=== PATIENT | female | born 1970 | race Caucasian/White ===

== ENCOUNTER 2016-09-30 09:50 | Day surgery (SDC) | payer MEDICAID ==
[~2016-09-30] VITALS: Ht 177.8 cm; Wt 90.7 kg
[~2016-09-30 09:50] MED LIST: ABILIFY2 MG PO; ASCORBIC ACID PO; BIOTIN5 MG PO; CARAFATE1 G PO; CYCLOBENZAPRINE10 MG PO; DIOVAN HCT; DIOVAN HCT 80-11 TAB PO; FISH OIL 1,0001 CA1 PO; IRON PO; MULTI-DAY VITAM1 TAB PO; OXYBUTYNIN CHLOR5 MG PO; PAXIL10 MG PO; PROMETRIUM200 MG PO; PROTONIX40 MG PO; STOOL SOFTENER240 MG PO; ULTRAM50 MG PO; XANAX1 MG PO
[2016-09-30 10:46] LABS: BASOPHILS 0.2 % (0.0-2.0); HEMATOCRIT 36.4 % (36.0-48.0); HEMOGLOBIN 11.6 g/dL (12-16); IMMATURE GRANULOCYTES 0.2 % (0-5); LYMPHOCYTES 33.5 % (15-50); MCH 27.8 pg (26.0-34.0); MCHC 31.9 g/dL (31.0-37.0); MCV 87.3 fL (80.0-100.0); MEAN PLATELET VOLUME 11.1 fL (7.4-10.4); MONOCYTES 7.5 % (2-11); NEUTROPHILS 55.6 % (40-80); PLATELET COUNT 198 10x3/uL (130-400); RBC 4.17 10x6/uL (4.00-5.40); RDW 14.6 % (11.5-14.5); WBC 5.1 10x3/uL (4.8-10.8)
[2016-09-30 10:52] LABS: CALC OSMOLALITY 277 mosm/kg (275-300); CALCIUM 8.3 mg/dL (8.5-10.1); CARBON DIOXIDE 33.8 mmol/L (21.0-32.0); CHLORIDE - SERUM 105 mmol/L (98-107); CREATININE - SERUM 0.8 mg/dL (0.6-1.3); GLUCOSE 109 mg/dL (74-106); POTASSIUM - SERUM 3.9 mmol/L (3.5-5.1); SODIUM 140 mmol/L (136-145); UREA NITROGEN 6 mg/dL (7-18); eGFR NON AFRICAN AMERICAN 81 mL/min (90-120)
[2016-09-30] MEDS ORDERED: TENORMIN25 MG PO (11:36)
[2016-09-30] MEDS ORDERED: NEURONTIN 300300 MG PO (11:37)
[2016-09-30] MEDS ORDERED: BUMEX2 MG PO (11:37)
[2016-09-30] MEDS ORDERED: MOBIC7.5 MG PO (11:37)
[2016-09-30 11:41] VITALS: BP 146/77; Ht 177.8 cm; Wt 90.7 kg
--- NOTE | 2016-09-30 18:47 | NUR ---
1500--IV DC'D, PT UP TO DRESS. CHEMA GUERRIER [id number]--DISCHARGE INSTRUCTIONS GIVEN, PT VWERBALIZES UNDERSTANDING. PT OFF UNIT VIA WC. CHEMA GUERRIER
--- NOTE | 2016-10-07 08:50 | OP ---
PATIENT NAME: BRY GAO MEDICAL RECORD: [id number] :68 LOCATION:[facility] ADMISSION DATE: SURGEON: ANEL FREY DPM DATE OF OPERATION: 09/30/2016 PREOPERATIVE DIAGNOSES: 1. Arthritis, right ankle. 2. Sprain, dorsal aspect of the right talus. POSTOPERATIVE DIAGNOSES: 1. Arthritis, right ankle. 2. Sprain, dorsal aspect of the right talus. PROCEDURES: 1. Ankle arthroscopy, right ankle. 2. Right ankle with extensive debridement of chondromalacia and capsulitis and hypertrophied tissue. 3. Excision of spur, dorsal aspect of the right talus. ANESTHESIA: General with local infiltrated utilizing lidocaine and Marcaine plain around the ankle, approximately 20 cc total. HEMOSTASIS: Right thigh tourniquet at 350 mmHg. PREOPERATIVE DETAILS: The patient was taken to the OR, placed on the operating table in supine position. This was followed by induction of general anesthesia and infiltration of local anesthetic. The right extremity was then prepped and draped in the usual aseptic technique followed by exsanguination and inflation of tourniquet. PROCEDURE #1: Ankle scope, right ankle. A small stab incision was made over the anterior lateral shoulder of the right ankle. The incision was deepened down bluntly. Trocar and cannula was placed to puncture the joint capsule into the joint with the camera. The camera showed a significant chondromalacia and arthritis on hypertrophied capsule of the ankle joint. At this time, a small stab incision was made over the anterior medial shoulder of the ankle joint. Blunt trocar was used to puncture the joint capsule and the synovial debrider was introduced in the medial portal. At this time, the chondromalacia, hypertrophied capsule were excised. The portals were switched, camera medial and the synovial shaver introduced laterally. The process was repeated with extensive debridement of the arthritic chondromalacia as well as hypertrophied capsule. PROCEDURE #2: The camera and synovial shaver were removed and incision was extended over the anterior medial aspect of the left ankle running down along the medial aspect of the neck of the talus. The incision was deepened down through subcutaneous tissue down to the talus. Soft tissue was freed from the dorsal aspect of the talus. There was noted to be a large spur on the dorsal aspect. It was resected with a sagittal saw and smoothed with a bone rasp. The wound was flushed. Closure of the joint capsule was performed with 2-0 Vicryl as well as closure of the subcutaneous tissue with 4-0 Rapide and the skin was closed with 4-0 nylon in a running interlocking technique medially and the lateral incision, which was a small stab incision. Simple closure was used with 4-0 nylon. Adaptic, 4 x 4 and Conform were used to dress the wound followed by application of Coban. Tourniquet was deflated. OPERATIVE REPORT [id number] BRY GAO POSTOPERATIVE DETAILS: The patient tolerated the procedure well and left the OR with vital signs stable and vascular status at preop levels. The patient was transported to recovery in stable condition. TRANSINT:[id number] Voice Confirmation ID: [id number] DOCUMENT ID: [id number] ANEL FREY DPM at 0850 CC: [id number] DICTATION DATE: 09/30/16 1325 RESPIRATORY ASSISTANT: 09/30/16 2040 [facility] [place] 09/30/16 [facility] [address] [place] [address]
== END 2016-09-30 15:40 | disposition home or self-care (01) ==
LOC: D.OPS 09:50 → D.PAN 12:15 → D.OPS 13:15 → D.PAN 13:15 → D.OPS 15:40
PROVIDERS: Anesthesiology
DX: M13.871 Other specified arthritis, right ankle and foot (principal); S93.491A Sprain of other ligament of right ankle, initial encounter; M94.271 Chondromalacia, right ankle and joints of right foot; M76.891 Other specified enthesopathies of right lower limb, excluding foot